=== PATIENT | female | born 1985 | race Caucasian/White ===

== ENCOUNTER → 2016-10-31 | Outpatient (CLI) | payer OTHER | LOC: EDBD → NWCC 13:21 | PROVIDERS: ATTEND Surgery | DX: S71.151A Open bite, right thigh, initial encounter (principal); F17.210 Nicotine dependence, cigarettes, uncomplicated; Z82.49 Family history of ischemic heart disease and other diseases of the circulatory system; Z83.49 Family history of other endocrine, nutritional and metabolic diseases; Z80.41 Family history of malignant neoplasm of ovary | CPT/HCPCS: 97605; G0463 ==

== ENCOUNTER → 2016-11-04 | Outpatient (CLI) | payer OTHER | LOC: NWCC 15:26 | PROVIDERS: ATTEND Surgery | DX: S71.151A Open bite, right thigh, initial encounter (principal) | CPT/HCPCS: 97605 ==

== ENCOUNTER → 2016-11-07 | Outpatient (CLI) | payer OTHER | LOC: NWCC 08:28 | PROVIDERS: ATTEND Surgery | DX: S71.151A Open bite, right thigh, initial encounter (principal) | CPT/HCPCS: 97605 ==

== ENCOUNTER → 2016-11-11 | Outpatient (CLI) | payer OTHER | LOC: NWCC 14:22 | PROVIDERS: ATTEND Surgery | DX: T63.331A Toxic effect of venom of brown recluse spider, accidental (unintentional), initial encounter (principal); S71.151A Open bite, right thigh, initial encounter | CPT/HCPCS: A6237; G0463 ==

== ENCOUNTER → 2016-11-12 | Outpatient (CLI) | payer OTHER | LOC: SCU 08:00 → EDSTATUS 12:00 | PROVIDERS: ATTEND Surgery | DX: Z53.9 Procedure and treatment not carried out, unspecified reason (principal) ==

== ENCOUNTER → 2016-11-14 | Outpatient (CLI) | payer OTHER | LOC: NWCC 08:26 | PROVIDERS: ATTEND Surgery | DX: S71.151A Open bite, right thigh, initial encounter (principal) | CPT/HCPCS: 97605 ==

== ENCOUNTER → 2016-11-17 | Outpatient (CLI) | payer OTHER | LOC: NWCC 15:42 | PROVIDERS: ATTEND Surgery | DX: T63.331A Toxic effect of venom of brown recluse spider, accidental (unintentional), initial encounter (principal); S71.151A Open bite, right thigh, initial encounter | CPT/HCPCS: A6021; A6210; G0463 ==

== ENCOUNTER → 2016-11-25 | Outpatient (CLI) | payer OTHER | LOC: NWCC 14:04 | PROVIDERS: ATTEND Surgery | DX: S71.151A Open bite, right thigh, initial encounter (principal) | CPT/HCPCS: A6210; G0463 ==

== ENCOUNTER → 2016-12-02 | Outpatient (CLI) | payer OTHER | LOC: NWCC 15:01 | PROVIDERS: ATTEND Surgery | DX: T63.331A Toxic effect of venom of brown recluse spider, accidental (unintentional), initial encounter (principal); S71.151A Open bite, right thigh, initial encounter | CPT/HCPCS: A6021; A6210; G0463 ==

== ENCOUNTER → 2016-12-19 | Outpatient (CLI) | payer OTHER | LOC: NWCC 08:45 | PROVIDERS: ATTEND Surgery | DX: S71.151A Open bite, right thigh, initial encounter (principal) | CPT/HCPCS: A6021; A6209; G0463 ==